=== PATIENT | male | born 1980 | race African-American/Black ===

== ENCOUNTER 2018-05-11 04:40 | Inpatient (IN) ==
[2018-05-11] MEDS ORDERED: Dexamethasone Inj 20 MG/5 ML Vial IV.PUSH ONE (05:00)
[2018-05-11] MEDS ORDERED: Sod Chloride 0.9% Inj 1,000 ML IV.SIG ONE (05:00)
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
--- NOTE | 2018-05-11 05:13 | CT ---
EXAM DATE: 05/11/2018 4:50 AM EDT AGE/SEX: 38 years / Male INDICATIONS: Left sided neck pain and sore throat X 5 days; rule out abscess. CLINICAL DATA: This is the patient's initial encounter. Patient reports that signs and symptoms have been present for 4 - 6 days and indicates a pain score of 7/10. MEDICAL/SURGICAL HISTORY: None. None. RADIATION DOSE: 15.90 CTDI (mGy) COMPARISON: No prior exams available for comparison. TECHNIQUE: Helical acquisition was performed using a multirow detector CT scanner without contrast. Using automated exposure control and adjustment of the mA and/or kV according to patient size, radiat ion dose was kept as low as reasonably achievable to obtain optimal diagnostic quality images. DICOM format image data is available electronically for review and comparison. FINDINGS: There is a large left lateral pharyngeal mass identified with size approaching 4 cm. Density is heter ogeneous and greater than fluid density throughout most of the mass. There are some enlarged ipsilate ral left neck lymph nodes, including a 24 x 13 m group II node. There are changes of bullous emphysem a seen in the visualized lung apices. The maxillary sinuses contain areas of polypoid mucosal disease and there is mild disease in the visualized ethmoid air cells. There are no destructive bony changes identified. Evaluation is otherwise limited by absence of IV contrast. CONCLUSION: Left lateral pharyngeal mass and cervical adenopathy. Electronically signed by: Lazaro Colbert MD 05/11/2018 5:12 AM EDT
[2018-05-11 05:30] LABS: Baso % (Auto) 0.2 % (0.0-2.0); Eos % (Auto) 0.1 % (0.0-4.0); Hemoglobin 12.9 gm/dL (13.0-17.0); Lymph # (Auto) 0.9 th/mm3 (1.0-4.8); Lymph % (Auto) 5.9 % (9.0-44.0); Mean Corpuscular HGB Conc 31.6 % (32.0-36.0); Mean Corpuscular Volume 79.2 fL (80.0-100.0); Mean Platelet Volume 8.4 fL (7.0-11.0); Mono # (Auto) 1.1 th/mm3 (0.0-0.9); Mono % (Auto) 7.4 % (0.0-8.0); Neut # (Auto) 13.2 th/mm3 (1.8-7.7); Neut % (Auto) 86.4 % (16.0-70.0); Platelet Count 247 th/mm3 (150-450); Red Blood Count 5.17 mil/mm3 (4.50-5.90); Red Cell Distribution Width 13.3 % (11.6-17.2); White Blood Count 15.3 th/mm3 (4.0-11.0)
[2018-05-11] MEDS ORDERED: Ampicillin/Sulbactam Inj 3 GM in Sodium Chloride 0.9% Inj 100 ML IV.SIG ONE (05:35)
[2018-05-11] MEDS ORDERED: Clindamycin 900 mg/NS Premix 900 MG/50 ML PIGGYBACK IV.SIG ONE (05:42)
[2018-05-11] MEDS ORDERED: Ketorolac Inj 30 MG/ML (IVP) Vial IV.PUSH ONE (05:44)
[2018-05-11 05:46] LABS: Alkaline Phosphatase 77 U/L (45-117); Total Protein 9.6 g/dL (6.4-8.2)
[2018-05-11 05:55] LABS: Alanine Aminotransferase 37 U/L (12-78); Anion Gap 7 meq/L (5-15); Aspartate Aminotransferase 40 U/L (15-37); Blood Urea Nitrogen 18 mg/dL (7-18); Calcium 9.1 mg/dL (8.5-10.1); Carbon Dioxide 29.7 meq/L (21.0-32.0); Chloride 100 meq/L (98-107); Glomerular Filtration Rate 80 mL/min (>89); Glucose,Random 92 mg/dL (74-106); Sodium 137 meq/L (136-145)
[2018-05-11 05:56] LABS: Potassium 5.1 meq/L (3.5-5.1)
[2018-05-11] MEDS ORDERED: Bisacodyl 10 MG Supp RECTAL PRN (05:59)
[2018-05-11] MEDS ORDERED: Acetaminophen 325 MG Tablet PO PRN (05:59)
[2018-05-11] MEDS ORDERED: Morphine Sulfate Inj 2 MG/ML Vial IV.PUSH PRN (06:00)
[2018-05-11] MEDS ORDERED: Sodium Chloride 0.9% 2 ML Flush PRN IV.FLUSH (06:14)
[2018-05-11] MEDS: Sod Chloride 0.9% Inj 1,000 ML IV.CONT SCH ×2 (06:38→17:17)
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
[2018-05-11] MEDS: Sodium Chloride 0.9% 2 ML Flush BID IV.FLUSH SCH ×2 (10:12→20:10)
[2018-05-11] MEDS: Senna/Docusate Sodium 8.6/50 MG Tablet PO SCH ×2 (10:12→20:10)
[2018-05-11] MEDS: Ampicillin/Sulbactam Inj 3 GM in Sodium Chloride 0.9% Inj 100 ML IV.SIG SCH ×2 (11:38→17:15)
[2018-05-11] MEDS: Clindamycin 900 mg/NS Premix 900 MG/50 ML PIGGYBACK IV.SIG SCH ×2 (14:14→23:08)
[2018-05-12] MEDS: Ampicillin/Sulbactam Inj 3 GM in Sodium Chloride 0.9% Inj 100 ML IV.SIG SCH ×3 (00:12→11:58)
[2018-05-12] MEDS: Clindamycin 900 mg/NS Premix 900 MG/50 ML PIGGYBACK IV.SIG SCH ×2 (05:16→13:15)
[2018-05-12] MEDS: Sod Chloride 0.9% Inj 1,000 ML IV.CONT SCH ×2 (06:22→11:58)
[2018-05-12 07:22] LABS: Baso # (Auto) 0.1 th/mm3 (0.0-0.2); Baso % (Auto) 0.3 % (0.0-2.0); Hematocrit 36.3 % (39.0-51.0); Hemoglobin 11.4 gm/dL (13.0-17.0); Lymph # (Auto) 0.9 th/mm3 (1.0-4.8); Lymph % (Auto) 4.9 % (9.0-44.0); Mean Corpuscular HGB Conc 31.4 % (32.0-36.0); Mean Corpuscular Hemoglobin 24.9 pg (27.0-34.0); Mean Corpuscular Volume 79.5 fL (80.0-100.0); Mono # (Auto) 0.6 th/mm3 (0.0-0.9); Mono % (Auto) 3.4 % (0.0-8.0); Neut # (Auto) 16.8 th/mm3 (1.8-7.7); Neut % (Auto) 91.4 % (16.0-70.0); Platelet Count 228 th/mm3 (150-450); Red Blood Count 4.57 mil/mm3 (4.50-5.90); Red Cell Distribution Width 13.6 % (11.6-17.2); White Blood Count 18.4 th/mm3 (4.0-11.0)
[2018-05-12 07:53] LABS: Alanine Aminotransferase 29 U/L (12-78); Albumin 3.1 g/dL (3.4-5.0); Alkaline Phosphatase 71 U/L (45-117); Anion Gap 9 meq/L (5-15); Aspartate Aminotransferase 20 U/L (15-37); Blood Urea Nitrogen 14 mg/dL (7-18); Calcium 8.6 mg/dL (8.5-10.1); Carbon Dioxide 26.3 meq/L (21.0-32.0); Chloride 104 meq/L (98-107); Glomerular Filtration Rate Greater Than 89 mL/min (>89); Glucose,Random 102 mg/dL (74-106); Potassium 4.3 meq/L (3.5-5.1); Sodium 139 meq/L (136-145); Total Protein 7.9 g/dL (6.4-8.2)
[2018-05-12] MEDS: Senna/Docusate Sodium 8.6/50 MG Tablet PO SCH (09:01)
[2018-05-12] MEDS: Sodium Chloride 0.9% 2 ML Flush BID IV.FLUSH SCH (09:01)
--- NOTE | 2018-05-12 10:02 | P.PN ---
Subjective Interval history: This is a pleasant 38 y/o Male with Tobacco dependence, one-week history of left -sided throat swelling with associated dysphagia/odynophagia. Patient reports approximately 1 week ago he started to notice some nasal congestion, then shortly after developed left-sided tonsillar edema. He reports associated dysphasia and odynophagia. He also reports changes in his voice due to the swelling. He has not been able to tolerate swallowing any liquids or solids. He denies noticing any fevers or chills. CT neck showed large 4 cm left lateral pharyngeal mass with cervical adenopathy. ENT following. Seen in his bedroom, discussed with patient and with his Nurse as per ENT okay to discharge the Patient Home continue with regular diet and Augmentin every 12 hours, Physical Exam Vital signs: Vital Signs 05/11/18 12:00 05/11/18 16:00 05/11/18 20:00 Temperature 97.6 F 97.7 F 97.3 F L Pulse Rate 69 84 69 Respiratory Rate 17 19 20 Blood Pressure 115/65 100/70 121/60 Pulse Oximetry 96 96 95 05/12/18 00:00 05/12/18 04:00 Temperature 97.6 F 97.9 F Pulse Rate 59 L 78 Respiratory Rate 18 20 Blood Pressure 121/73 106/65 Pulse Oximetry 96 94 L Intake & Output 05/11/18 05/12/18 05/12/18 18:59 06:59 18:59 Intake Total 2850 / 2850 2160 / 2160 100 / 100 Balance 2850 / 2850 2160 / 2160 100 / 100 Weight 65.3 kg Intake: IV 1350 / 1350 1200 / 1200 100 / 100 NS Inj 1,000 ML @ 100 mls/hr IV 1000 / 1000 1000 / 1000 .CONT .Q10H B[facility] Rx#:[id number] Unasyn Inj 3 GM In NS Inj 100 300 / 300 100 / 100 100 / 100 ML @ 200 mls/hr IV.SIG Q6H [facility] Rx#:[id number] Cleocin 900 mg/NS Premix 900 mg 50 / 50 100 / 100 In 50 ml @ 100 mls/hr IV.SIG Q8H [facility] Rx#:[id number] Oral 1500 / 1500 960 / 960 Other: # Voids 4 10 Narrative: GENERAL: This is a well-nourished, well-developed patient, in no apparent distress. CARDIOVASCULAR: Regular rate and rhythm without murmurs, gallops, or rubs. RESPIRATORY: Clear to auscultation. Breath sounds equal bilaterally. No wheezes , rales, or rhonchi. GASTROINTESTINAL: Abdomen soft, non-tender, nondistended. Normal active bowel sounds MUSCULOSKELETAL: Extremities without clubbing, cyanosis, or edema. NEURO: Alert & Oriented x4 to person, place, time, situation. Moves all ext x4 Results - Labs CBC & Chem 7: 05/12/18 06:18 05/12/18 06:18 Laboratory Results - last 24 hr 05/12/18 05/12/18 06:18 06:18 WBC 18.4 H RBC 4.57 Hgb 11.4 L Hct 36.3 L MCV 79.5 L MCH 24.9 L MCHC 31.4 L RDW 13.6 Plt Count 228 MPV 9.0 Neut % (Auto) 91.4 H Lymph % (Auto) 4.9 L [place] % (Auto) 3.4 Eos % (Auto) 0.0 Baso % (Auto) 0.3 Neut # (Auto) 16.8 H Lymph # (Auto) 0.9 L [place] # (Auto) 0.6 Eos # (Auto) 0.0 Baso # (Auto) 0.1 WBC Differential . Differential Comment Auto diff final Sodium 139 Potassium 4.3 D Chloride 104 Carbon Dioxide 26.3 Anion Gap 9 BUN 14 Creatinine 0.85 Estimated GFR Greater than 89 Random Glucose 102 Calcium 8.6 Total Bilirubin 0.5 AST 20 ALT 29 Alkaline Phosphatase 71 Total Protein 7.9 D Albumin 3.1 L D - Imaging Soft Tissue Neck CT 05/11/18 04:46 CONCLUSION: Left lateral pharyngeal mass and cervical adenopathy. Assessment and Plan - Plan 38-year-old [place] male with history of tobacco use presents with a one-week history of left-sided throat swelling with associated dysphagia/odynophagia. Left Pharyngeal Mass vs Peritonsillar Abscess: Infectious source more likely, however CT concerning for mass. +Leukocytosis with WBC 15.3K. -Neck CT reviewed, shows a large 4cm left lateral pharyngeal mass identified ; Density is heterogeneous and greater than fluid density throughout most of the mass; enlarged ipsilateral left neck lymph nodes -Continue on antibiotics with IV Clindamycin 900mg q8h -Continue steroids with IV Decadron 4mg q8h -Pain control with IV morphine prn, viscous lidocaine prn -Consulted ENT, discussed with Dr. Mercado, recommends admission for IV steroids/antibiotics, will follow the patient at this time recommended by Doctor Mercado to continue Regular diet and discharge patient home on Augmentin 875/125 mg every 12 hours. Tobacco Use: chronic -counseled on cessation DVT Prophylaxis: low risk, patient is ambulatory Code Status: Full code. Discussed Condition With: Patient and Nurse Miss Glass she talked to Doctor Mercado and Discharge the patient. Discharge Planning: Discharge patient now.
[2018-05-12 12:49] VITALS: BP 113/80; PULSE 62; RESP 18; TEMP 98.1; O2SAT 95
--- NOTE | 2018-05-12 13:41 | P.DS ---
Date of admission: 05/11/18 06:20 Primary care physician: No Primary Care Physician Attending physician on discharge: Keith Asif Anticipated date of discharge: 05/12/18 Brief History from admission: 38-year-old [place] male with history of tobacco use presents with a one-week history of left-sided throat swelling with associated dysphagia/odynophagia. Patient reports approximately 1 week ago he started to notice some nasal congestion, then shortly after developed left-sided tonsillar edema. He reports associated dysphasia and odynophagia. He also reports changes in his voice due to the swelling. He has not been able to tolerate swallowing any liquids or solids. He denies noticing any fevers or chills. He has been taking multiple medications including Tylenol, NyQuil, Chloraseptic throat spray , nasal spray, with minimal relief. He states even tried drinking small bottles of liquor as this was a remedy he used at home in [facility]. He denies any chest pain, shortness of breath, abdominal pain, nausea/vomiting, or diarrhea. He denies any sick contacts. He denies any prior history of tonsillitis. He states he is normally very healthy. He does smoke tobacco, 1 black and mild cigar every few days, although states he quit recently. Upon arrival to the ER , CT neck showed large 4 cm left lateral pharyngeal mass with cervical adenopathy. He was given IV Decadron, IV Unasyn, IV clindamycin, and admitted with ENT Dr. Mercado consulted. DS: Diagnosis - Discharge Diagnosis (1) Abscess of larynx Status: Acute DS: Summary Hospital Course: This is a pleasant 38 y/o Male with Tobacco dependence, one-week history of left -sided throat swelling with associated dysphagia/odynophagia. Patient reports approximately 1 week ago he started to notice some nasal congestion, then shortly after developed left-sided tonsillar edema. He reports associated dysphasia and odynophagia. He also reports changes in his voice due to the swelling. He has not been able to tolerate swallowing any liquids or solids. He denies noticing any fevers or chills. CT neck showed large 4 cm left lateral pharyngeal mass with cervical adenopathy. ENT following. Seen in his bedroom, discussed with patient and with his Nurse as per ENT okay to discharge the Patient Home continue with regular diet and Augmentin every 12 hours, Soft Tissue Neck CT 05/11/18 04:46 CONCLUSION: Left lateral pharyngeal mass and cervical adenopathy. Assessment and Plan - Plan 38-year-old [place] male with history of tobacco use presents with a one-week history of left-sided throat swelling with associated dysphagia/odynophagia. Left Pharyngeal Mass vs Peritonsillar Abscess: Infectious source more likely, however CT concerning for mass. +Leukocytosis with WBC 15.3K. -Neck CT reviewed, shows a large 4cm left lateral pharyngeal mass identified ; Density is heterogeneous and greater than fluid density throughout most of the mass; enlarged ipsilateral left neck lymph nodes -Continue on antibiotics with IV Clindamycin 900mg q8h -Continue steroids with IV Decadron 4mg q8h -Pain control with IV morphine prn, viscous lidocaine prn -Consulted ENT, discussed with Dr. Mercado, recommends admission for IV steroids/antibiotics, will follow the patient at this time recommended by Doctor Mercado to continue Regular diet and discharge patient home on Augmentin 875/125 mg every 12 hours. Tobacco Use: chronic -counseled on cessation DVT Prophylaxis: low risk, patient is ambulatory Code Status: Full code. Discussed Condition With: Patient and Nurse Miss Glass she talked to Doctor Mercado and Discharge the patient. Discharge Planning: Discharge patient now. - Time Spent with Patient Total time spent providing and/or coordinating discharge services: Less than 30 minutes Exam Vital signs: Vital Signs 05/11/18 16:00 05/11/18 20:00 05/12/18 00:00 Temperature 97.7 F 97.3 F L 97.6 F Pulse Rate 84 69 59 L Respiratory Rate 19 20 18 Blood Pressure 100/70 121/60 121/73 Pulse Oximetry 96 95 96 05/12/18 04:00 05/12/18 08:00 05/12/18 12:00 Temperature 97.9 F 97.5 F L 98.1 F Pulse Rate 78 75 62 Respiratory Rate 20 17 18 Blood Pressure 106/65 110/85 113/80 Pulse Oximetry 94 L 98 95 Intake & Output 05/11/18 05/12/18 05/12/18 18:59 06:59 18:59 Intake Total 2850 / 2850 2160 / 2160 200 / 200 Balance 2850 / 2850 2160 / 2160 200 / 200 Weight 65.3 kg Intake: IV 1350 / 1350 1200 / 1200 200 / 200 NS Inj 1,000 ML @ 100 mls/hr IV 1000 / 1000 1000 / 1000 .CONT .Q10H [facility] Rx#:[id number] Unasyn Inj 3 GM In NS Inj 100 300 / 300 100 / 100 200 / 200 ML @ 200 mls/hr IV.SIG Q6H [facility] Rx#:[id number] Cleocin 900 mg/NS Premix 900 mg 50 / 50 100 / 100 In 50 ml @ 100 mls/hr IV.SIG Q8H [facility] Rx#:[id number] Oral 1500 / 1500 960 / 960 Other: # Voids 4 10 Narrative: GENERAL: This is a well-nourished, well-developed patient, in no apparent distress. CARDIOVASCULAR: Regular rate and rhythm without murmurs, gallops, or rubs. RESPIRATORY: Clear to auscultation. Breath sounds equal bilaterally. No wheezes , rales, or rhonchi. GASTROINTESTINAL: Abdomen soft, non-tender, nondistended. Normal active bowel sounds MUSCULOSKELETAL: Extremities without clubbing, cyanosis, or edema. NEURO: Alert & Oriented x4 to person, place, time, situation. Moves all ext x4 Results Procedures completed during hospitalization: None Labs on day of discharge: Labs from last 24 hours 05/12/18 05/12/18 06:18 06:18 WBC 18.4 H RBC 4.57 Hgb 11.4 L Hct 36.3 L MCV 79.5 L MCH 24.9 L MCHC 31.4 L RDW 13.6 Plt Count 228 MPV 9.0 Neut % (Auto) 91.4 H Lymph % (Auto) 4.9 L Nance % (Auto) 3.4 Eos % (Auto) 0.0 Baso % (Auto) 0.3 Neut # (Auto) 16.8 H Lymph # (Auto) 0.9 L Nance # (Auto) 0.6 Eos # (Auto) 0.0 Baso # (Auto) 0.1 WBC Differential . Differential Comment Auto diff final Sodium 139 Potassium 4.3 D Chloride 104 Carbon Dioxide 26.3 Anion Gap 9 BUN 14 Creatinine 0.85 Estimated GFR Greater than 89 Random Glucose 102 Calcium 8.6 Total Bilirubin 0.5 AST 20 ALT 29 Alkaline Phosphatase 71 Total Protein 7.9 D Albumin 3.1 L D Preliminary micro results at discharge 05/11/18 12:30 Aerobic Blood Culture - Preliminary Blood - Line No growth in 1 day Anaerobic Blood Culture - Preliminary No growth in 1 day 05/11/18 12:35 Aerobic Blood Culture - Preliminary Blood - Line No growth in 1 day Anaerobic Blood Culture - Preliminary No growth in 1 day - Impressions ITS Impressions Soft Tissue Neck CT 05/11/18 04:46 CONCLUSION: Left lateral pharyngeal mass and cervical adenopathy. Discharge Plan - Discharge Disposition Patient Disposition: Discharge Home - Discharge Condition Condition: Good - Discharge Order Discharge Orders: Discharge Order (Routine); Ordered 05/12/18 Ordered By: Keith Asif - Discharge Details Anticipated Discharge Date: 05/12/18 Discharge Comment: Follow up as outpatient with ENT specialist in one week. - Physicians Team Primary Care Provider: Primary Care Silvana Bland Attending Provider: Keith Asif Other Providers: Stewart Mercado MD
== END 2018-05-12 15:21 | disposition home or self-care (01) ==
LOC: NEDA 04:40 → NEPD 04:40 → NEDA 08:37 → N07 08:39
PROVIDERS: ADMIT Internal Medicine; ATTEND Internal Medicine